=== PATIENT | male | born 1990 | race African-American/Black ===

== ENCOUNTER 2017-03-14 16:50 | Outpatient (CLI) ==
[2017-03-14 17:00] LABS: BILIRUBIN,URINE Negative (NEGATIVE); KETONES,URINE Negative (NEGATIVE); LEUKOCYTE ESTERASE ,URINE Negative (NEGATIVE); NITRITE,URINE Negative (NEGATIVE); PH,URINE 6.5 (5-9); PROTEIN,URINE Negative (NEGATIVE); URINE, BLOOD Trace-intact (NEGATIVE)
[2017-03-14 17:02] LABS: ADD URINE MICROSCOPIC YES
[2017-03-18 09:32] LABS: HIV ANTIBODIES QUALITATIVE NON REACTIVE (Nonreactive)
== END 2017-03-14 16:51 | disposition home or self-care (01) ==
LOC: LAB 16:50
PROVIDERS: ATTEND Nurse Practitioner Family
DX: Z20.2 Contact with and (suspected) exposure to infections with a predominantly sexual mode of transmission (principal)
CPT/HCPCS: 36415; 80074; 81001; 86701; 87800

== ENCOUNTER 2017-05-14 13:09 | Outpatient (CLI) ==
[2017-05-14 13:31] LABS: FLU INTERNAL QC INTERNAL QC VALID; RAPID FLU A NEGATIVE (NEGATIVE); RAPID FLU B NEGATIVE (NEGATIVE)
== END 2017-05-14 13:10 | disposition home or self-care (01) ==
LOC: LAB 13:09
PROVIDERS: ATTEND Emergency Medicine
DX: J06.9 Acute upper respiratory infection, unspecified (principal); R68.89 Other general symptoms and signs
CPT/HCPCS: 87651; 87804; 87880

== ENCOUNTER 2017-08-28 14:06 | Outpatient (CLI) | END 2017-08-28 14:07 | disposition home or self-care (01) | LOC: LAB 14:06 | PROVIDERS: ATTEND Nurse Practitioner Family | DX: J02.9 Acute pharyngitis, unspecified (principal) | CPT/HCPCS: 87651 ==

== ENCOUNTER 2017-10-01 16:20 | Outpatient (CLI) | END 2017-10-01 16:21 | disposition home or self-care (01) | LOC: RHC-LAB 16:20 | PROVIDERS: ATTEND Emergency Medicine | DX: J02.9 Acute pharyngitis, unspecified (principal) | CPT/HCPCS: 87651 ==

== ENCOUNTER 2017-11-24 13:46 | Outpatient (CLI) | END 2017-11-24 13:47 | disposition home or self-care (01) | LOC: LAB 13:46 | PROVIDERS: ATTEND Emergency Medicine | DX: R10.84 Generalized abdominal pain (principal); Z20.2 Contact with and (suspected) exposure to infections with a predominantly sexual mode of transmission | CPT/HCPCS: 36415; 80053; 81001; 85025; 86592; 86632; 86695; 86696; 87800 ==

== ENCOUNTER 2017-12-15 11:32 | Outpatient (CLI) | END 2017-12-15 11:33 | disposition home or self-care (01) | LOC: LAB 11:32 | PROVIDERS: ATTEND Emergency Medicine | DX: Z20.2 Contact with and (suspected) exposure to infections with a predominantly sexual mode of transmission (principal); R10.84 Generalized abdominal pain | CPT/HCPCS: 36415; 86632; 87800 ==

== ENCOUNTER 2019-02-26 10:28 | Emergency (ER) ==
[2019-02-26 10:39] VITALS: BP 151/74; TEMP 98; BMI 29.0
--- NOTE | 2019-02-26 11:07 | ED.PDOC ---
General ED Provider: Dr. STEFFANIE MOSS Chief Complaint: Nausea/Vomiting Stated Complaint: n/v/headache , cough history of asthma Time Seen by Physician: 10:32 (seen with his nurse at all times ) Mode of Arrival: Walk-In Information Source: Patient Exam Limitations: No limitations Nursing and Triage Documentation Reviewed and Agree: Yes Does patient meet sepsis criteria?: No System Inflammatory Response Syndrome: Not Applicable Sepsis Protocol: For patient's 13 years and over: Temp is 96.8 and below OR 101 and greater Pulse >90 BPM Resp >20/minute Acutely Altered Mental Status Are patient's symptoms suggestive of a new infection, such as: -Pneumonia -Skin, Soft Tissue -Endocarditis -UTI -Bone, Joint Infection -Implantable Device -Acute Abdominal Infection -Wound Infection -Meningitis -Blood Stream Catheter Infection -Unknown Respiratory Complaint Exam - Respiratory Complaint/Exam Onset/Duration: 3 days Symptoms Are: Resolved Timing: Intermittent Initial Severity: Mild Location: Throat, Chest Character: Reports: Non-productive cough Aggravating: Reports: None Alleviating: Reports: None Associated Signs and Symptoms: Reports: Nasal congestion (headache ), Vomiting. Denies: Rapid breathing, Dyspnea, Fever, Chills, Chest pain, Pleuritic chest pain, Wheezing, Hemoptysis, Dizziness, Calf pain, Calf swelling, Edema, URI, Hoarseness, Sinus discomfort, Sore throat, Weight loss, Decreased oral intake, Increased thirst, Increased appetite, Increased urination History of Healthcare-Acquired Pneumonia: No Related Surgical History: Reports: None Cardiac Risk Factors: Reports: None Pseudomonas Risk Factors: Reports: None Tuberculosis Risk Factors: Reports: None Status Asthmaticus Risk Factors: Reports: None Home Oxygen Use: No Recent Stress Test: No Recent Echo/LV Function: No Current Antibiotic Use: No Current Asthma Medication Use: No Respiratory Distress: None Inadequate Respiratory Effort: No Dysphagia Present: No Stridor Present: No JVD Present: No Accessory Muscle Use: No Retractions: Not Present Diminished Breath Sounds: No Sinus Tenderness: None Grunting Respirations: No Kussmaul Respirations: No Differential Diagnoses: Asthma, Pneumonia, Bronchitis Review of Systems - Review Of Systems Constitutional: Reports: Malaise Eyes: Reports: No symptoms Ears, Nose, Mouth, Throat: Reports: No symptoms Respiratory: Reports: Cough Cardiac: Reports: No symptoms GI: Reports: Nausea, Poor appetite, Vomiting : Reports: No symptoms Musculoskeletal: Reports: No symptoms Skin: Reports: No symptoms Neurological: Reports: Headache Endocrine: Reports: No symptoms Hematologic/Lymphatic: Reports: No symptoms All Other Systems: Reviewed and Negative Past Medical History - Past Medical History Previously Healthy: Yes Endocrine: Reports: None Cardiovascular: Reports: None Respiratory: Reports: Asthma Hematological: Reports: None Gastrointestinal: Reports: None Genitourinary: Reports: None Neuro/Psych: Reports: None Musculoskeletal: Reports: None Cancer: Reports: None - Surgical History General Surgical History: Reports: None - Family History Family History: Reports: None - Social History Smoking Status: Never smoker Hx Substance Use: No Alcohol Screening: Occasionally - Immunizations Tetanus Shot up to Date: Yes Physical Exam - Physical Exam Appearance: Well-appearing, No pain distress, Well-nourished Eyes: TAMI, EOMI, Conjunctiva clear ENT: Ears normal, Nose normal, Oropharynx normal Respiratory: Airway patent, Breath sounds clear, Breath sounds equal, Respirations nonlabored Cardiovascular: RRR, Pulses normal, No rub, No murmur GI/: Soft, Nontender, No masses, Bowel sounds normal, No Organomegaly Musculoskeletal: Normal strength, ROM intact, No edema, No calf tenderness Skin: Warm, Dry, Normal color Neurological: Sensation intact, Motor intact, Reflexes intact, Cranial nerves intact, Alert, Oriented Psychiatric: Affect appropriate, Mood appropriate Critical Care Note - Critical Care Note Total Time (mins): 0 (pt asked how long would it take for the data to return i responded anytime between1,5 hours to 3 hours . pt stated he cant not stay . kacey at beside at all times . pt refused the blood work and imaging and left) Course - Course Orders, Labs, Meds: Orders Category Date Time Status CBC W/ AUTO DIFF Stat LAB 02/26/19 11:00 Stop Req COMPREHENSIVE METABOLIC PANEL Stat LAB 02/26/19 11:00 Stop Req CHEST, 2 VIEWS PA & LAT Stat RADS 02/26/19 11:[address] HEAD W/O CONTRAST Stat RADS 02/26/19 11:00 Stop Req Vital Signs: Temp Pulse Resp BP Pulse Ox 02/26/19 10:29 98.0 F 58 L 16 151/74 H 98 Departure - Departure Time of Disposition: 11:09 Disposition: AMA Discharge Problem: Cough Headache Qualifiers: Headache type: unspecified Headache chronicity pattern: unspecified pattern Intractability: not intractable Qualified Code(s): R51 - Headache Condition: Good Pt referred to PMD for follow-up: Yes IPMP verified?: No Allergies/Adverse Reactions: Allergies Penicillins Allergy (Unknown, Unverified 03/14/17 13:41) unknown shellfish derived Allergy (Unknown, Unverified 03/14/17 13:50) unknown Home Medications: Ambulatory Orders Albuterol Sulfate [Proair Hfa] 8.5 gm IH PRN 03/14/17 Disposition Discussed With: Patient
== END 2019-02-26 11:08 | disposition left against medical advice (07) ==
LOC: ED 10:28
DX: R05 Cough (principal); R51 Headache; R11.2 Nausea with vomiting, unspecified
CPT/HCPCS: 99284